=== PATIENT | female | born 1955 | race Caucasian/White ===

== ENCOUNTER 2019-09-25 09:05 | Emergency (ER) | payer SELFPAY ==
[2019-09-25 09:43] VITALS: BP 129/85; PULSE 77; RESP 16; TEMP 37.1; O2SAT 99
--- NOTE | 2019-09-25 09:48 | ED.URI ---
HPI - URI/Sore Throat General Chief Complaint: Upper Respiratory Symptoms Stated Complaint: poss tonsilitis Time Seen by Provider: 09/25/19 09:39 Source: patient Mode of arrival: Ambulatory Limitations: no limitations History of Present Illness HPI Narrative: This is a 63-year-old female comes emergency department with complaint of sore throat, little bit irritation. She states that her throat has been irritated for about 2 or 3 days. She denies any fevers. She denies much nasal congestion but states she has had some drainage down the back of her throat and when she laid flat last night it made her feel like she needed a cough. She also states she coughed up a little bit of green phlegm. Patient states she hasn't had any muffled voice and that her voice is only mildly lower. She states it feels like her tonsils are swollen she has not had any rashes or skin changes. No shortness of breath or chest pain, no nausea or vomiting. No other GI or urinary symptoms. No rashes or skin changes. 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 Patient denies any past medical issues, does not take medications daily. Denies any prior surgeries. No tobacco occasional alcohol no illicit. Review of Systems Review of Systems ROS Unobtainable: All systems reviewed & are unremarkable except as noted in HPI and below Patient History Social History Smoking Status: Never smoker Smoking Status: Never smoker alcohol intake frequency: a few times a month Substance Use Type: does not use Exam Narrative Exam Narrative: GEN: well nourished, well appearing female, alert and oriented x 3, patient appears to be in mild distress. HEENT: Atraumatic, pupils are equal round reactive to light, extraocular movements are intact, nares are clear, TMs are clear with no fluid, there is no conjunctival pallor. Throat is clear without any exudates, erythema, tonsillar enlargement or uvular deviation, patient has mild cervical lymphadenopathy. No muffled. HEART: Regular rate and rhythm without murmur, clicks, rubs. LUNGS:Lungs clear to auscultation, no wheezes, rales, crackles, chest moves symmetrically ABD:bowel sounds normal, soft, non-tender, no guarding, rebound, rigidity, no masses noted, no hepatosplenomegaly MSCL: Non-tender, no muscle atrophy, muscles strength 5/5 upper and lower extremities, full range of motion, normal gait NEURO:CN 2-12 intact, sensation normal SKIN: no rash, no erythema. Initial Vital Signs Initial Vital Signs: Vital Signs Temperature 98.8 F 09/25/19 09:43 Pulse Rate 77 09/25/19 09:43 Respiratory Rate 16 09/25/19 09:43 Blood Pressure 129/85 09/25/19 09:43 Pulse Oximetry 99 09/25/19 09:43 Course Vital Signs Vital signs: Vital Signs - 8 hr 09/25/19 09:43 Temperature 98.8 F Pulse Rate 77 Respiratory Rate 16 Blood Pressure 129/85 Pulse Oximetry 99 MDM - URI/Sore Throat Lab Data Attestation: I reviewed the patient's lab results. Labs: Point of Care Testing Rapid Strep A Negative MDM Narrative Medical decision making narrative: Discussed with patient rapid strep negative, she does not meet centor criteria for treatment. Patient's exam is not suspicious for strep pharyngitis. Discussed that she likely has a viral cause of her symptoms. And that likely her mother's been exposed that she has had 3 days of symptoms. They live separately within the house but she does assist her regularly so we discussed good hand hygiene, face mask until she is improved. And close watch on her mom to help prevent exposure. Discharge Plan Departure Patient Disposition: Home Clinical Impression: Pharyngitis Discharge Date/Time: 09/25/19 10:19 Instructions: DI for Viral Pharyngitis Activity Restrictions/Additional Instructions: Primary care in the next week to 10 days if your symptoms have not resolved. You may continue with Flonase once daily intranasally bilaterally help with symptom control. You may also continue with 1 Laly daily for symptoms. You may take ibuprofen and/or Tylenol for any sore throat. Return to the emergency department for persistent fevers greater 100.4 F, rapidly worsening swelling, muffled voice, you are unable to swallow liquids, swelling of the face, neck or erythema or redness of the face or neck, lightheadedness, passing out, persistent vomiting or other new or concerning symptoms.
== END 2019-09-25 10:19 | disposition home or self-care (01) ==
PROVIDERS: Emergency Provider Emergency Medicine
DX: J02.9 Acute pharyngitis, unspecified (principal)
CPT/HCPCS: 87880; 99281; 99282

== ENCOUNTER 2025-06-18 17:18 | Emergency (ER) | payer MEDICARE, SELFPAY ==
[2025-06-18] VITALS (13 sets, daily range): BP systolic 90–157; BP diastolic 45–73; PULSE 67–88; RESP 14–23; TEMP 36.9; O2SAT 91–96; BMI 21.2
--- NOTE | 2025-06-18 17:31 | DI.CT.S_ITS ---
PROCEDURE: CT CERVICAL SPINE WO CON INDICATIONS: confused/unknown if pt fell TECHNIQUE: Noncontrast 3 mm thick sections acquired from the skull base to the T4 level. Sagittal and coronal reformats were then constructed. For radiation dose reduction, the following was used: automated exposure control, adjustment of mA and/or kV according to patient size. COMPARISON: None. FINDINGS: Image quality: Excellent. Bones: No fractures or dislocations. Cervical spondylosis. Visualized superior ribs are intact. Soft tissues: Prevertebral soft tissues are normal in thickness. No paravertebral hematomas. No apical pneumothoraces. IMPRESSION: No displaced fracture or traumatic subluxation. Cervical spondylosis. Dictated by: Roscoe Morales M.D. on 06/18/2025 at 18:14 Approved by: Roscoe Morales M.D. on 06/18/2025 at 18:18
--- NOTE | 2025-06-18 17:31 | DI.CT.S_ITS ---
PROCEDURE: CT HEAD/BRAIN WO CON INDICATIONS: confused TECHNIQUE: Noncontrast 4.5 mm thick angled axial sections acquired from the foramen magnum to the vertex, with coronal and sagittal reformats. For radiation dose reduction, the following was used: automated exposure control, adjustment of mA and/or kV according to patient size. COMPARISON: None. FINDINGS: Image quality: Diagnostic. CSF spaces: Basal cisterns are patent. No extra-axial fluid collections. The ventricles are symmetric in size and shape. Brain: No intracranial bleeds or mass effect. There is cerebral volume loss, with resultant ventricular and sulcal prominence. There are periventricular and deep white matter chronic small vessel ischemic changes. There is intracranial internal carotid artery atherosclerosis. Skull and face: Calvarium and visualized facial bones appear intact, without suspicious lesions. Sinuses: Visualized sinuses and mastoids are clear. IMPRESSION: No acute intracranial pathology. Dictated by: Roscoe Morales M.D. on 06/18/2025 at 18:10 Approved by: Roscoe Morales M.D. on 06/18/2025 at 18:11
--- NOTE | 2025-06-18 17:32 | DI.RAD.S_ITS ---
PROCEDURE: XR CHEST 1V INDICATIONS: altered mental status TECHNIQUE: One view of the chest was acquired. COMPARISON: None. FINDINGS: Surgical changes and devices: None. Lungs and pleura: Lungs are clear. No pleural effusions or pneumothorax. A right lower lobe calcified granuloma is present. There is minimal left basilar atelectasis. Mediastinum: Mediastinal contours appear normal. Heart size is normal. Bones and chest wall: No suspicious bony lesions. Overlying soft tissues appear unremarkable. IMPRESSION: No acute cardiopulmonary abnormality is seen. Dictated by: Aranza Mijares M.D. on 06/18/2025 at 17:07 Approved by: Aranza Mijares M.D. on 06/18/2025 at 17:08
--- NOTE | 2025-06-18 17:32 | EKG_ITS ---
[address] [address] Test Date: 2025-06-18 Pat Name: Addie Soni Department: [facility] Room: Gender: Female [employer] Mechanic: KINGSLEY : 1955 Requested By: Order Number: [id number] Reading MD: Benjamin Neo MD Measurements Intervals [place] Rate: 68 P: 28 W[place]: 198 QRS: -24 QRSD: 76 T: -4 QT: 410 QTc: 435 Interpretive Statements Normal sinus rhythm Minimal voltage criteria for LVH, may be normal variant ( R in aVL ) Electronically Signed On 06-20-2025 7:46:42 PDT by Benjamin Noe MD
[2025-06-18 17:39] LABS: Add Manual Diff / Slide Review NO; Hematocrit 38.6 % (36-46); Hemoglobin 13.3 g/dL (12.0-16.0); Lymphocytes Absolute Auto 1700 /uL (1100-4500); Mean Corpuscular HGB Conc 34.4 % (30-36); Mean Corpuscular Hemoglobin 34.5 PG (26-34); Mean Corpuscular Volume 100.4 fL (80-100); Platelet Count 287 X10^3/uL (150-400)
[2025-06-18 17:44] LABS: Lactate (Lactic Acid) 3.0 mmol/L (0.7-2.1)
[2025-06-18 17:45] LABS: Alanine Aminotransferase 18 IU/L (<35); Albumin 4.5 g/dL (3.5-5.0); Albumin Globulin Ratio 1.4 (1.0-2.8); Alkaline Phosphatase 86 U/L (38-126); Blood Urea Nitrogen 9 mg/dL (7-17); Calcium 9.5 mg/dL (8.4-10.2); Carbon Dioxide 18 mmol/L (22-32); Chloride 103 mmol/L (98-107); Creatine Kinase 85 U/L (30-135); Estimated Glomerular Filt Rate > 60 mL/min (>60); Globulin 3.3 g/dL (1.7-4.1); Glucose 104 mg/dL (70-99); HEMOLYSIS < 15 (0-50); Potassium 4.0 mmol/L (3.4-5.1); Sodium 137 mmol/L (137-145); Total Protein 7.8 g/dL (6.3-8.2)
[2025-06-18 17:56] LABS: Troponin I < 0.012 ng/mL (0.01-0.034)
[2025-06-18 18:01] LABS: Procalcitonin 0.054 ng/mL (<0.5)
[2025-06-18 18:03] LABS: Ethanol (ETOH) 365 mg/dL (<10)
--- NOTE | 2025-06-18 18:40 | PC.NURSE ---
Pt pulled out her IV in her right forearm. bruised and wrapped in coban.
--- NOTE | 2025-06-18 18:49 | PC.NURSE ---
Pt pulling removing leads, states she wants to leave. Unable to maintain cardiac monitoring.
[2025-06-18 19:11] LABS: Reflexed Lactate in 2 Hours Y
[2025-06-18 19:38] LABS: Lactate 2HR (Lactic Acid Rflx) 2.6 mmol/L (0.7-2.1)
--- NOTE | 2025-06-18 19:39 | ED.GENADULT ---
HPI - General Adult General Chief complaint: Toxicology Problem Stated complaint: possibly intoxicated Time Seen by Provider: 06/18/25 17:22 History of Present Illness HPI narrative: 69-year-old female states that she does not know why she is here. Wants to go home. Nursing triage note indicates EMS arrival, EMS reported the patient seemed visibly intoxicated, had been drinking with other persons in the household, unknown if there is any trauma, patient apparently was witnessed to be attempting to eat dirt out of a planter box. Related Data Allergies Allergy/AdvReac Type Severity Reaction Status Date / Time No Allergy Information Allergy Verified 06/18/25 17:31 Available Patient History alcohol intake frequency: a few times a month Exam Narrative Exam Narrative: GENERAL: Well-developed patient, in mild distress. HEAD: Atraumatic. Normocephalic. EYES: Pupils equal round and reactive. Extraocular motions intact. No scleral icterus. No injection or drainage. ENT: Nose without bleeding, purulent drainage. Throat without erythema, tonsillar hypertrophy or exudate. Airway patent. NECK: Trachea midline. Non tender CARDIOVASCULAR: Regular rate and rhythm without murmurs, gallops, or rubs. RESPIRATORY: Clear to auscultation. Breath sounds equal bilaterally. No wheezes, rales, or rhonchi. GASTROINTESTINAL: Abdomen soft, non-tender, nondistended. EXTREMITIES: No edema or joint tenderness. BACK: Nontender without deformity or crepitance. No flank tenderness. NEURO: AOx3. Motor functions grossly nonfocal. Psych: agitated, not directable, denies thoughts of hurting self or others SKIN: No rash or erythema of visible areas Initial Vital Signs Initial Vital Signs: Vital Signs Temperature 98.4 F 06/18/25 17:26 Pulse Rate 74 06/18/25 17:26 Respiratory Rate 16 06/18/25 17:26 Blood Pressure 130/67 06/18/25 17:26 Pulse Oximetry 95 06/18/25 17:26 Oxygen Delivery Method Room Air 06/18/25 17:26 Course Orders Ordered: ED Orders 06/19/25 06:00 Ethanol (ETOH) Stat Discontinued Medications Diphenhydramine HCl (Diphenhydramine 50 Mg/Ml Vial) 50 mg IV NOW ONE Stop: 06/18/25 19:47 Last Admin: 06/18/25 20:11 Dose: 50 mg Documented By: DAPHNE Haloperidol (Haloperidol 5 Mg/Ml Vial) 5 mg IM NOW ONE Stop: 06/18/25 19:47 Last Admin: 06/18/25 20:21 Dose: Not Given Documented By: DAPHNE Haloperidol (Haloperidol 5 Mg/Ml Vial) 5 mg IV NOW ONE Stop: 06/18/25 20:08 Last Admin: 06/18/25 20:12 Dose: 5 mg Documented By: DAPHNE Sodium Chloride (Normal Saline 0.9%) 1,000 mls @ 1,000 mls/hr IV BOLUS ONE Stop: 06/18/25 20:35 Last Infusion: 06/18/25 21:07 Dose: Infused Documented By: Admin: 06/18/25 20:05 Dose: 1,000 mls/hr Documented By: DAPHNE Thiamine HCl 100 mg/ Sodium (Chloride) 101 mls @ 404 mls/hr IV NOW ONE Stop: 06/18/25 19:37 Last Infusion: 06/18/25 20:42 Dose: Infused Documented By: Admin: 06/18/25 20:13 Dose: 404 mls/hr Documented By: DAPHNE Sodium Chloride (Normal Saline 0.9%) 1,000 mls @ 1,000 mls/hr IV BOLUS ONE Stop: 06/18/25 23:10 Last Infusion: 06/18/25 23:11 Dose: Infused Documented By: Anna Admin: 06/18/25 22:12 Dose: 1,000 mls/hr Documented By: DAPHNE Vital Signs Vital signs: Vital Signs - 8 hr 06/19/25 01:00 06/19/25 01:00 06/19/25 06:19 Pulse Rate 76 94 H Respiratory Rate 17 Blood Pressure 132/60 Pulse Oximetry 93 93 Oxygen Delivery Method Room Air 06/19/25 06:19 Pulse Rate Respiratory Rate Blood Pressure 144/63 H Pulse Oximetry Oxygen Delivery Method Medical Decision Making Lab Data Lab results reviewed: Yes I reviewed the patient's lab results. Lab results narrative: White blood cell count 6700, hemoglobin 13.3, platelets adequate. Glucose 104. Normal renal function. Serum CO2 18 decreased. Normal electrolytes. Slight elevation AST, other liver functions normal. Alcohol level 365 elevated from blood draw time 5:18 p.m.. Initial lactate 3.0, repeat lactate 2.6, no fluids have been given. 06/18/25 17:18 06/18/25 17:18 Labs: Lab Results 06/18/25 06/18/25 06/18/25 Range/Units 17:18 19:20 21:40 WBC 6.7 (4.5-11.0) X10^3/uL RBC 3.84 L (4.0-5.2) X10^6/uL Hgb 13.3 (12.0-16.0) g/dL Hct 38.6 (36-46) % MCV 100.4 H (80-100) fL MCH 34.5 H (26-34) PG MCHC 34.4 (30-36) % RDW 13.6 (11.6-14.8) % Plt Count 287 (150-400) X10^3/uL Neut % (Auto) 58.6 (50-75) % Lymph % (Auto) 25.9 (25-40) % [place] % (Auto) 13.9 (3-14) % Eos % (Auto) 0.7 L (2-4) % Baso % (Auto) 0.9 (0-2) % Neut # (Auto) 3900 (4937-0365) /uL Lymph # (Auto) 1700 (8897-3295) /uL [place] # (Auto) 900 (0-900) /uL Eos # (Auto) 100 (0-450) /uL Baso # (Auto) 100 (0-100) /uL Sodium 137 (137-145) mmol/L Potassium 4.0 (3.4-5.1) mmol/L Chloride 103 (98-107) mmol/L Carbon Dioxide 18 L (22-32) mmol/L BUN 9 (7-17) mg/dL Creatinine 0.60 (0.52-1.04) mg/dL Estimated GFR > 60 (>60) mL/min BUN/Creatinine Ratio 15.0 (6-22) Glucose 104 H (70-99) mg/dL Lactate 3.0 H 2.6 H 2.5 H (0.7-2.1) mmol/L Calcium 9.5 (8.4-10.2) mg/dL Total Bilirubin 0.4 (0.2-1.3) mg/dL AST 42 H (14-36) IU/L ALT 18 (<35) IU/L Alkaline Phosphatase 86 (38-126) U/L Total Creatine Kinase 85 (30-135) U/L Troponin I < 0.012 (0.01-0.034) ng/mL Total Protein 7.8 (6.3-8.2) g/dL Albumin 4.5 (3.5-5.0) g/dL Globulin 3.3 (1.7-4.1) g/dL Albumin/Globulin Ratio 1.4 (1.0-2.8) Procalcitonin 0.054 (<0.5) ng/mL Urine RBC (0-5/HPF) Urine WBC (0-5/HPF) Ur Squamous Epith Cells (0-5/HPF) Urine Bacteria (None) Vol Urine Centrifuged U Opiates 300ng/mL cut (Negative) Ur Oxycodone Screen (Negative) Urine Methadone Screen (Negative) Ur Barbiturates Screen (Negative) U Tricyclic Antidepress (Negative) Ur Phencyclidine Scrn (Negative) Ur Amphetamines Screen (Negative) U Methamphetamines Scrn (Negative) Ur MDMA Scrn (Ecstasy) (Negative) U Benzodiazepines Scrn (Negative) Urine Cocaine Screen (Negative) U Marijuana (THC) Screen (Negative) Urine pH (Normal) Urine Specific [place] (Normal) Ethyl Alcohol 365 H (<10) mg/dL Ur Creatinine (Normal) 06/18/25 06/19/25 Range/Units 22:17 06:00 WBC (4.5-11.0) X10^3/uL RBC (4.0-5.2) X10^6/uL Hgb (12.0-16.0) g/dL Hct (36-46) % MCV (80-100) fL MCH (26-34) PG MCHC (30-36) % RDW (11.6-14.8) % Plt Count (150-400) X10^3/uL Neut % (Auto) (50-75) % Lymph % (Auto) (25-40) % [place] % (Auto) (3-14) % Eos % (Auto) (2-4) % Baso % (Auto) (0-2) % Neut # (Auto) (2330-2591) /uL Lymph # (Auto) (1341-8521) /uL [place] # (Auto) (0-900) /uL Eos # (Auto) (0-450) /uL Baso # (Auto) (0-100) /uL Sodium (137-145) mmol/L Potassium (3.4-5.1) mmol/L Chloride (98-107) mmol/L Carbon Dioxide (22-32) mmol/L BUN (7-17) mg/dL Creatinine (0.52-1.04) mg/dL Estimated GFR (>60) mL/min BUN/Creatinine Ratio (6-22) Glucose (70-99) mg/dL Lactate 1.1 (0.7-2.1) mmol/L Calcium (8.4-10.2) mg/dL Total Bilirubin (0.2-1.3) mg/dL AST (14-36) IU/L ALT (<35) IU/L Alkaline Phosphatase (38-126) U/L Total Creatine Kinase (30-135) U/L Troponin I (0.01-0.034) ng/mL Total Protein (6.3-8.2) g/dL Albumin (3.5-5.0) g/dL Globulin (1.7-4.1) g/dL Albumin/Globulin Ratio (1.0-2.8) Procalcitonin (<0.5) ng/mL Urine RBC None seen (0-5/HPF) Urine WBC 0-1/hpf (0-5/HPF) Ur Squamous Epith Cells 0-1 /hpf (0-5/HPF) Urine Bacteria None seen (None) Vol Urine Centrifuged 10ml (spun) U Opiates 300ng/mL cut Negative (Negative) Ur Oxycodone Screen Negative (Negative) Urine Methadone Screen Negative (Negative) Ur Barbiturates Screen Negative (Negative) U Tricyclic Antidepress Negative (Negative) Ur Phencyclidine Scrn Negative (Negative) Ur Amphetamines Screen Negative (Negative) U Methamphetamines Scrn Negative (Negative) Ur MDMA Scrn (Ecstasy) Negative (Negative) U Benzodiazepines Scrn Negative (Negative) Urine Cocaine Screen Negative (Negative) U Marijuana (THC) Screen Negative (Negative) Urine pH Normal (Normal) Urine Specific [place] Normal (Normal) Ethyl Alcohol < 10 (<10) mg/dL Ur Creatinine Normal (Normal) Urine Dip Bedside Urine Glucose Negative Bedside Urine Bilirubin - Negative Bedside Urine Ketone - Negative Urine Specific [place] 1.005 Bedside Urine Occult Blood +/- Bedside Urine pH 6.0 Bedside Urine Protein - Negative Bedside Urine Urobilinogen - Negative Bedside Urine Nitrite - Negative Bedside Urine Leukocytes - Negative Esterase Point of care testing: Urine Dip Bedside Urine Glucose Negative Bedside Urine Bilirubin - Negative Bedside Urine Ketone - Negative Urine Specific [place] 1.005 Bedside Urine Occult Blood +/- Bedside Urine pH 6.0 Bedside Urine Protein - Negative Bedside Urine Urobilinogen - Negative Bedside Urine Nitrite - Negative Bedside Urine Leukocytes - Negative Esterase Imaging Data Chest x-ray: Radiologist's Impression: Diagnostics Reports Addie Soni??69??F??1955 ? Allergy/Adv: No Allergy Information Available [address] [address] XRay Report Signed Patient: Addie Soni MR#: [id number] : 1955 Acct:[id number] Age/Sex: 69 / F Date of Service: 06/18/25 Loc: ED Accession Number: [id number] Procedure: XR chest 1V Ordering Provider: Benjamin Moreno D.O. PROCEDURE: XR CHEST 1V INDICATIONS: altered mental status TECHNIQUE: One view of the chest was acquired. COMPARISON: None. FINDINGS: Surgical changes and devices: None. Lungs and pleura: Lungs are clear. No pleural effusions or pneumothorax. A right lower lobe calcified granuloma is present. There is minimal left basilar atelectasis. Mediastinum: Mediastinal contours appear normal. Heart size is normal. Bones and chest wall: No suspicious bony lesions. Overlying soft tissues appear unremarkable. IMPRESSION: No acute cardiopulmonary abnormality is seen. Dictated by: Aranza Mijares M.D. on 06/18/2025 at 17:07 Approved by: Aranza Mijares M.D. on 06/18/2025 at 17:08 CT scan - head: Radiologist's Impression: [address] [address] [address] Scan Report Signed Patient: Addie Soni MR#: [id number] : 1955 Acct:[id number] Age/Sex: 69 / F Date of Service: 06/18/25 Loc: ED Accession Number: [id number] Procedure: CT head/brain wo con Ordering Provider: Benjamin Moreno D.O. PROCEDURE: CT HEAD/BRAIN WO CON INDICATIONS: confused TECHNIQUE: Noncontrast 4.5 mm thick angled axial sections acquired from the foramen magnum to the vertex, with coronal and sagittal reformats. For radiation dose reduction, the following was used: automated exposure control, adjustment of mA and/or kV according to patient size. COMPARISON: None. FINDINGS: Image quality: Diagnostic. CSF spaces: Basal cisterns are patent. No extra-axial fluid collections. The ventricles are symmetric in size and shape. Brain: No intracranial bleeds or mass effect. There is cerebral volume loss, with resultant ventricular and sulcal prominence. There are periventricular and deep white matter chronic small vessel ischemic changes. There is intracranial internal carotid artery atherosclerosis. Skull and face: Calvarium and visualized facial bones appear intact, without suspicious lesions. Sinuses: Visualized sinuses and mastoids are clear. IMPRESSION: No acute intracranial pathology. Dictated by: Roscoe Morales M.D. on 06/18/2025 at 18:10 Approved by: Roscoe Morales M.D. on 06/18/2025 at 18:11 CT - cervical spine: Radiologist's Impression: [place] [address] CT Scan Report Signed Patient: Addie Soni MR#: [id number] : 1955 Acct:[id number] Age/Sex: 69 / F Date of Service: 06/18/25 Loc: ED Accession Number: [id number] Procedure: CT cervical spine wo con Ordering Provider: Benjamin Moreno D.O. PROCEDURE: CT CERVICAL SPINE WO CON INDICATIONS: confused/unknown if pt fell TECHNIQUE: Noncontrast 3 mm thick sections acquired from the skull base to the T4 level. Sagittal and coronal reformats were then constructed. For radiation dose reduction, the following was used: automated exposure control, adjustment of mA and/or kV according to patient size. COMPARISON: None. FINDINGS: Image quality: Excellent. Bones: No fractures or dislocations. Cervical spondylosis. Visualized superior ribs are intact. Soft tissues: Prevertebral soft tissues are normal in thickness. No paravertebral hematomas. No apical pneumothoraces. IMPRESSION: No displaced fracture or traumatic subluxation. Cervical spondylosis. Dictated by: Roscoe Morales M.D. on 06/18/2025 at 18:14 Approved by: Roscoe Morales M.D. on 06/18/2025 at 18:18 ECG Data Attestation: I personally reviewed and interpreted this ECG as follows: Interpretation: 1826, normal sinus rhythm with a rate of 68, no obvious ST segment elevation or depression changes. OR 198, QRS 76, QTC 435. MDM Narrative Medical decision making narrative: 69-year-old female suspected to have alcohol intoxication, confused, unclear who called 911, EMS transport, noted to be drinking alcohol with friends, EMS reportedly saw patient attempting to eat dirt out of a plant box. Unclear if there might have been any trauma, no obvious trauma on examination. CT head and cervical spine ordered by previous off shift provider. Chest x-ray and labs pending. Lab data: White blood cell count 6700, hemoglobin 13.3, platelets adequate. Glucose 104. Normal renal function. Serum CO2 18 decreased. Normal electrolytes. Slight elevation AST, other liver functions normal. Alcohol level 365 elevated from blood draw time 5:18 p.m.. Initial lactate 3.0, repeat lactate 2.6, no fluids have been given. Chest x-ray, no acute changes. See radiology report. CT head noncontrast, no acute changes. See radiology report. CT cervical spine noncontrast, degenerative changes, no acute changes, see radiology report. Markedly elevated alcohol level 365 at 518pm, initial lactate elevated at 3, repeat 2.6 but patient had mount been treated with any fluids. We will give IV fluid bolus. Repeat interval lactate after fluid hydration. We will add IV thiamine. There is no family or sober adult available to take patient home, who was requesting discharge home. We will need further observation for sobriety and safe discharge home. Patient has persisting agitation, non directable. IM Haldol/Benadryl. Patient sleeping 0300, patient sleeping, vitals normal, no oxygen requirement. 0600, patient ambulatory, no distress, no signs and symptoms alcohol withdrawal. Friend can come pick her up. We will discharge patient home. Discharge Plan Departure Patient Disposition: Home Clinical Impression: Alcoholic intoxication, Agitation Activity Restrictions/Additional Instructions: EMS transport for suspected Toxicology problem, unclear who called 911, reportedly persons on scene and/or EMS saw that your eating from dirt and planter box, seemed to be quite confused. No trauma was known but unclear if there could have been any trauma causing confusion. Alcohol on breath. Blood alcohol quite elevated. CT scanning of the head and cervical spine negative for any traumatic injuries. You had agitation and required some medication. You were observed overnight, your vitals remained stable, you fortunately did not require any airway interventions that sometimes happens when people have severe alcohol intoxication or other substance intoxication syndromes, and your body was able to metabolize substances in your blood stream. You did not seem to exhibit any alcohol or other withdrawal syndromes. This morning you seemed calm and stable, able to walk around without difficulties. Discharged home. Encouraged to avoid alcohol and/or other drug use. Recheck with your regular doctor if any problems. Continue current chronic medications as prescribed if any, for now. Return earlier to this/nearest emergency department for any change worsening symptoms or any concerns. Stand Alone Forms: Patient Portal/API
[2025-06-18] MEDS: SODIUM CHLORIDE 0.9% 1,000 ML 1000 ML IV ×2 (20:05→22:12)
[2025-06-18] MEDS: diphenhydrAMINE 50 MG/ML VIAL IV (20:11)
[2025-06-18] MEDS: HALOPERIDOL 5 MG/ML VIAL IV (20:12)
[2025-06-18] MEDS: THIAMINE 100 MG in SODIUM CHLORIDE 0.9% 100 ML 404 MG IV (20:13)
[2025-06-18 21:57] LABS: Lactate (Lactic Acid) 2.5 mmol/L (0.7-2.1)
[2025-06-18 22:29] LABS: Ur Creatinine Normal (Normal); Ur Specific Gravity Normal (Normal); Urine MDMA Negative (Negative); Urine Methamphetamines Negative (Negative); Urine THC Negative (Negative); Urine Tricyclic Antidepressant Negative (Negative); Urine pH Normal (Normal)
[2025-06-18 23:19] LABS: Reflexed Lactate in 2 Hours Y
[2025-06-19] VITALS: PULSE 70; RESP 23; O2SAT 96
[2025-06-19 00:01] VITALS: BP 107/55; PULSE 73; RESP 18; O2SAT 97
[2025-06-19 00:30] VITALS: BP 115/56; PULSE 73; RESP 18; O2SAT 95
[2025-06-19 01:00] VITALS: BP 132/60; PULSE 76; RESP 17; O2SAT 93
[2025-06-19 06:19] VITALS: BP 144/63; PULSE 94; O2SAT 93
[2025-06-19 06:22] LABS: Lactate 2HR (Lactic Acid Rflx) 1.1 mmol/L (0.7-2.1)
[2025-06-19 06:23] LABS: Ethanol (ETOH) < 10 mg/dL (<10)
== END 2025-06-19 06:41 | disposition home or self-care (01) ==
PROVIDERS: Family Medicine; Emergency Provider Emergency Medicine
DX: F10.129 Alcohol abuse with intoxication, unspecified (principal); Y90.8 Blood alcohol level of 240 mg/100 ml or more; R45.1 Restlessness and agitation; R41.82 Altered mental status, unspecified
CPT/HCPCS: 36415; 70450; 71045; 72125; 80053; 80305; 80320; 81003; 81015; 82550; 83605; 84145; 84484; 85025; 87040; 87086; 93005; 93010; 96361; 96365; 96375; 99284; J1200; J1630